=== PATIENT | male | born 1990 | race Caucasian/White ===

== ENCOUNTER 2023-06-08 11:15 | Emergency (ER) | payer MEDICAID, OTHER ==
[~2023-06-08] VITALS: Ht 185.4 cm; Wt 77.0 kg
[~2023-06-08 11:15] MED LIST: CLIN-12 PO; IBUP-1986 PO; NO HOME MEDS
[2023-06-08 11:29] VITALS: BP 114/78; PULSE 66; RESP 15; TEMP 97.9; O2SAT 99
[2023-06-08] MEDS ORDERED: PRED20TA PO (12:31)
[2023-06-08] MEDS ORDERED: CYCL-1 PO (12:31)
[2023-06-08] MEDS ORDERED: ketorolac tromethamine 15mg/ml inj. IM ONE (12:35)
[2023-06-08] MEDS ORDERED: ketorolac trometh inj. 60 MG/2 ML VIAL IM ONE (12:42)
== END 2023-06-08 12:45 | disposition home or self-care (01) ==
LOC: ER 11:16
DX: M25.551 Pain in right hip (principal); M54.32 Sciatica, left side; F12.90 Cannabis use, unspecified, uncomplicated; F15.90 Other stimulant use, unspecified, uncomplicated; Z86.14 Personal history of Methicillin resistant Staphylococcus aureus infection; Z72.89 Other problems related to lifestyle; Z56.0 Unemployment, unspecified; Z79.2 Long term (current) use of antibiotics; Z79.899 Other long term (current) drug therapy
CPT/HCPCS: 96372; 99283

== ENCOUNTER 2024-07-14 10:54 | Emergency (ER) | payer MEDICAID ==
[~2024-07-14] VITALS: Ht 188 cm; Wt 88.0 kg
[~2024-07-14 10:54] MED LIST changes: +CYCL-1 PO
[2024-07-14 11:05] VITALS: TEMP 98.1
[2024-07-14 13:16] VITALS: BP 128/80; PULSE 63; RESP 16; O2SAT 98
== END 2024-07-14 13:21 | disposition home or self-care (01) ==
LOC: ER 10:54
DX: M25.552 Pain in left hip (principal); R25.2 Cramp and spasm; F28 Other psychotic disorder not due to a substance or known physiological condition; F12.90 Cannabis use, unspecified, uncomplicated; F15.90 Other stimulant use, unspecified, uncomplicated; Z88.8 Allergy status to other drugs, medicaments and biological substances; Z79.2 Long term (current) use of antibiotics; Z79.1 Long term (current) use of non-steroidal anti-inflammatories (NSAID); Z79.899 Other long term (current) drug therapy; Z72.89 Other problems related to lifestyle; Z56.0 Unemployment, unspecified
CPT/HCPCS: 93971; 99284

== ENCOUNTER 2024-08-25 13:55 | Emergency (ER) | payer MEDICAID ==
[~2024-08-25] VITALS: Ht 188 cm; Wt 90.0 kg
[2024-08-25 15:45] VITALS: BP 118/78; PULSE 77; RESP 18; TEMP 98.1; O2SAT 100
== END 2024-08-25 15:49 | disposition home or self-care (01) ==
LOC: ER 13:55
DX: S01.01XA Laceration without foreign body of scalp, initial encounter (principal); F12.90 Cannabis use, unspecified, uncomplicated; F15.90 Other stimulant use, unspecified, uncomplicated; Z88.8 Allergy status to other drugs, medicaments and biological substances; Z79.1 Long term (current) use of non-steroidal anti-inflammatories (NSAID); Z79.2 Long term (current) use of antibiotics; X58.XXXA Exposure to other specified factors, initial encounter; Y93.51 Activity, roller skating (inline) and skateboarding; Y92.89 Other specified places as the place of occurrence of the external cause; Y99.8 Other external cause status
CPT/HCPCS: 12002; 99282

== ENCOUNTER 2024-11-28 13:43 | Emergency (ER) | payer MEDICAID ==
[~2024-11-28] VITALS: Ht 188 cm; Wt 88.7 kg
[2024-11-28] MEDS ORDERED: COROTSUS OT (16:02)
[2024-11-28] MEDS ORDERED: IBUP-1984 PO (16:03)
[2024-11-28 16:18] VITALS: BP 133/76; PULSE 60; RESP 17; TEMP 98.2; O2SAT 98
== END 2024-11-28 16:19 | disposition home or self-care (01) ==
LOC: ER 13:44
DX: T16.1XXA Foreign body in right ear, initial encounter (principal); H60.91 Unspecified otitis externa, right ear; F12.90 Cannabis use, unspecified, uncomplicated; F15.90 Other stimulant use, unspecified, uncomplicated; Z88.6 Allergy status to analgesic agent; Z79.899 Other long term (current) drug therapy; W44.G1XA Audio device entering into or through a natural orifice, initial encounter; Y93.89 Activity, other specified; Y92.89 Other specified places as the place of occurrence of the external cause; Y99.8 Other external cause status
CPT/HCPCS: 69200; 99284

== ENCOUNTER 2025-01-20 10:04 | Emergency (ER) | payer MEDICAID ==
[~2025-01-20] VITALS: Ht 188 cm; Wt 88.2 kg
[~2025-01-20 10:04] MED LIST changes: +COROTSUS OT
[2025-01-20] MEDS ORDERED: IBUP-1986 PO (10:37)
[2025-01-20] MEDS ORDERED: LIDO700A32 TOP (10:37)
[2025-01-20] MEDS: LIDOcaine 5% patch TP ONE (10:45)
[2025-01-20 10:49] VITALS: BP 136/86; PULSE 74; RESP 16; TEMP 98.2; O2SAT 98
== END 2025-01-20 10:50 | disposition home or self-care (01) ==
LOC: ER 10:05
DX: G89.29 Other chronic pain (principal); M25.511 Pain in right shoulder; F12.90 Cannabis use, unspecified, uncomplicated; Z88.8 Allergy status to other drugs, medicaments and biological substances
CPT/HCPCS: 99283